=== PATIENT | male | born 1975 | race Two or more races ===

== ENCOUNTER 2023-03-12 17:04 | Emergency (ER) | payer SELFPAY ==
[~2023-03-12] VITALS: Ht 172.7 cm; Wt 90.7 kg
[2023-03-12] MEDS ORDERED: FLUORESCEIN SODIUM 1 MG STRIP ONE (17:09)
[2023-03-12] MEDS ORDERED: TETRACAINE HCL 0.5% OPHT DROP 2 ML BOTTLE ONE (17:09)
[2023-03-12] MEDS ORDERED: TETRACAINE HCL 0.5% OPHT DROP 2 ML BOTTLE OP ONE (17:15)
[2023-03-12] MEDS ORDERED: FLUORESCEIN SODIUM 1 MG STRIP OP ONE (17:15)
[2023-03-12] MEDS ORDERED: ERYT3.5O24 LEFTEYE (18:10)
[2023-03-12 18:19] VITALS: BP 126/70; O2SAT 99
== END 2023-03-12 18:44 | disposition home or self-care (01) ==
LOC: ER 17:10
DX: S05.02XA Injury of conjunctiva and corneal abrasion without foreign body, left eye, initial encounter (principal); X58.XXXA Exposure to other specified factors, initial encounter; Y93.89 Activity, other specified; Y92.89 Other specified places as the place of occurrence of the external cause; Y99.8 Other external cause status
CPT/HCPCS: A4606; A4663

== ENCOUNTER 2024-06-23 19:36 | Emergency (ER) | payer OTHER ==
[~2024-06-23] VITALS: Ht 177.8 cm; Wt 86.2 kg
[~2024-06-23 19:36] MED LIST: ERYT3.5O24 LEFTEYE
[2024-06-23 22:02] LABS: BASOPHILS % (AUTO) 0.6 % (0.0-2.0); EOSINOPHILS # (AUTO) 0.3 K/uL (0.0-0.7); EOSINOPHILS % (AUTO) 5.5 % (0.0-7.0); HEMOGLOBIN 11.1 g/dL (12.5-16.3); LYMPHOCYTES # (AUTO) 2.3 K/uL (0.8-4.8); LYMPHOCYTES % (AUTO) 40.6 % (20.5-51.5); MEAN CORPUSCULAR HEMOGLOBIN 26.2 uug (23.8-33.4); MEAN CORPUSCULAR HGB CONC 33 g/dL (32.5-36.3); MEAN CORPUSCULAR VOLUME 79.9 fL (73.0-96.2); MONOCYTES # (AUTO) 0.5 K/uL (0.1-1.30); MONOCYTES % (AUTO) 8.6 % (0.0-11.0); NEUTROPHILS # (AUTO) 2.6 K/uL (1.8-8.9); NEUTROPHILS % (AUTO) 44.7 % (38.5-71.5); PLATELET COUNT (AUTO) 262 K/uL (152-348); RED BLOOD CELL COUNT(AUTO) 4.25 MIL/uL (4.06-5.63); WHITE BLOOD COUNT (AUTO) 5.7 K/uL (3.6-10.2)
[2024-06-23 22:07] LABS: DIFFERENTIAL COMMENT 1
[2024-06-23] MEDS ORDERED: MAG HYDROX/AL HYDROX/SIMETH 30 ML LIQUID UDC ONE (22:10)
[2024-06-23] MEDS ORDERED: LIDOCAINE VISCUS 2% 15 ML UDC ONE (22:10)
[2024-06-23 22:12] LABS: CALCIUM 8.2 mg/dL (8.5-10.1); CARBON DIOXIDE 29 mmol/L (21-32); CHLORIDE 107 mmol/L (98-107); GLUCOSE 139 mg/dL (74-106); POTASSIUM 3.9 mmol/L (3.5-5.1); SODIUM SERUM 144 mmol/L (136-145); UREA NITROGEN, BLOOD 25 mg/dL (7-18)
[2024-06-23] MEDS: LIDOCAINE VISCUS 2% 15 ML UDC MM ONE (22:14)
[2024-06-23] MEDS: ONDANSETRON ODT 4 MG TAB.RAPDIS SL ONE (22:14)
[2024-06-23] MEDS: MAG HYDROX/AL HYDROX/SIMETH 30 ML LIQUID UDC PO ONE (22:14)
[2024-06-23 22:26] LABS: ALANINE AMINOTRANSFERASE 32 U/L (16-63); ALBUMIN 3.3 g/dL (3.4-5.0); ALKALINE PHOSPHATASE 55 U/L (50-136); ASPARTATE AMINOTRANSFERASE 27 U/L (15-37); BILIRUBIN,DIRECT 0.1 mg/dL (0.0-0.2); BILIRUBIN,TOTAL 0.3 mg/dL (0.2-1.0); NT-PRO BNP 32 pg/mL (0-125); TOTAL PROTEIN, SERUM 6.4 g/dL (6.4-8.2)
[2024-06-23] MEDS ORDERED: SENN1TAB33 PO (23:52)
[2024-06-23] MEDS ORDERED: FAMO-132 PO (23:52)
[2024-06-23] MEDS ORDERED: MAGNESIUM HYDROXIDE 30 ML LIQUID UDC ONE (23:59)
[2024-06-24] MEDS: MAGNESIUM HYDROXIDE 30 ML LIQUID UDC PO ONE (00:02)
[2024-06-24 00:03] VITALS: BP 84/61; O2SAT 100
== END 2024-06-24 00:04 | disposition home or self-care (01) ==
LOC: ER 19:36
DX: R07.89 Other chest pain (principal); K59.00 Constipation, unspecified; K21.9 Gastro-esophageal reflux disease without esophagitis; R61 Generalized hyperhidrosis; R94.31 Abnormal electrocardiogram [ECG] [EKG]; R06.02 Shortness of breath; Z59.00 Homelessness unspecified
CPT/HCPCS: 36415; 71045; 74018; 83690; 84484; 85025; 85730; A4606; A4663; Q0162

== ENCOUNTER 2024-07-14 00:57 | Emergency (ER) | payer OTHER ==
[~2024-07-14] VITALS: Ht 177.8 cm; Wt 83.9 kg
[~2024-07-14 00:57] MED LIST changes: +FAMO-132 PO; +SENN1TAB33 PO
[2024-07-14] MEDS ORDERED: ACETAMINOPHEN 500 MG TABLET ONE (03:32)
[2024-07-14] MEDS: ACETAMINOPHEN 500 MG TABLET PO ONE (03:35)
[2024-07-14] MEDS ORDERED: CYCL5TAB PO (04:40)
[2024-07-14 05:00] VITALS: BP 135/78; TEMP 98.2; O2SAT 100
== END 2024-07-14 05:01 | disposition home or self-care (01) ==
LOC: ER 01:35
DX: S16.1XXA Strain of muscle, fascia and tendon at neck level, initial encounter (principal); S29.011A Strain of muscle and tendon of front wall of thorax, initial encounter; S20.211A Contusion of right front wall of thorax, initial encounter; R06.02 Shortness of breath; R51.9 Headache, unspecified; R68.83 Chills (without fever); Z59.00 Homelessness unspecified; W22.03XA Walked into furniture, initial encounter; Y93.89 Activity, other specified; Y92.89 Other specified places as the place of occurrence of the external cause; Y99.8 Other external cause status
CPT/HCPCS: 71045; A4606; A4663; A9150

== ENCOUNTER 2024-07-27 22:16 | Emergency (ER) | payer OTHER ==
[~2024-07-27] VITALS: Ht 177.8 cm; Wt 83.9 kg
[~2024-07-27 22:16] MED LIST changes: +CYCL5TAB PO
[2024-07-27] MEDS: ONDANSETRON 4 MG/2 ML VIAL IV ONE (23:00)
[2024-07-27] MEDS: FAMOTIDINE. 20 MG/2 ML VIAL IV ONE (23:00)
[2024-07-27 23:02] LABS: BASOPHILS # (AUTO) 0.1 K/UL (0.0-0.2); BASOPHILS % (AUTO) 1.5 % (0.0-2.0); DIFFERENTIAL COMMENT 0; EOSINOPHILS # (AUTO) 0.4 K/uL (0.0-0.7); EOSINOPHILS % (AUTO) 8.5 % (0.0-7.0); HEMATOCRIT 30.8 % (36.7-47.1); HEMOGLOBIN 10.1 g/dL (12.5-16.3); LYMPHOCYTES # (AUTO) 1.6 K/uL (0.8-4.8); LYMPHOCYTES % (AUTO) 34.7 % (20.5-51.5); MEAN CORPUSCULAR HEMOGLOBIN 25.7 uug (23.8-33.4); MEAN CORPUSCULAR HGB CONC 33 g/dL (32.5-36.3); MEAN CORPUSCULAR VOLUME 78.7 fL (73.0-96.2); MONOCYTES # (AUTO) 0.5 K/uL (0.1-1.30); MONOCYTES % (AUTO) 10.7 % (0.0-11.0); NEUTROPHILS # (AUTO) 2.1 K/uL (1.8-8.9); NEUTROPHILS % (AUTO) 44.6 % (38.5-71.5); PLATELET COUNT (AUTO) 264 K/uL (152-348); RED BLOOD CELL COUNT(AUTO) 3.91 MIL/uL (4.06-5.63); RED CELL DISTRIBUTION WIDTH 16.6 % (12.1-16.2); WHITE BLOOD COUNT (AUTO) 4.7 K/uL (3.6-10.2)
[2024-07-27 23:12] LABS: CARBON DIOXIDE 26 mmol/L (21-32); CHLORIDE 104 mmol/L (98-107); CREATININE 1.3 mg/dL (0.6-1.3); GLUCOSE 148 mg/dL (74-106); POTASSIUM 3.4 mmol/L (3.5-5.1); SODIUM SERUM 141 mmol/L (136-145); UREA NITROGEN, BLOOD 24 mg/dL (7-18)
[2024-07-27 23:23] LABS: ALANINE AMINOTRANSFERASE 33 U/L (16-63); ALBUMIN 3.3 g/dL (3.4-5.0); ALKALINE PHOSPHATASE 63 U/L (50-136); ASPARTATE AMINOTRANSFERASE 27 U/L (15-37); BILIRUBIN,DIRECT 0.1 mg/dL (0.0-0.2); BILIRUBIN,TOTAL 0.3 mg/dL (0.2-1.0); NT-PRO BNP 36 pg/mL (0-125); TOTAL PROTEIN, SERUM 6.8 g/dL (6.4-8.2)
[2024-07-27] MEDS ORDERED: FAMOTIDINE. 20 MG/2 ML VIAL IV ONE (23:42)
[2024-07-27] MEDS ORDERED: ONDANSETRON 4 MG/2 ML VIAL ONE (23:42)
[2024-07-28] MEDS ORDERED: LIDOCAINE VISCUS 2% 15 ML UDC ONE (01:46)
[2024-07-28] MEDS ORDERED: MAG HYDROX/AL HYDROX/SIMETH 30 ML LIQUID UDC ONE (01:46)
[2024-07-28] MEDS: MAG HYDROX/AL HYDROX/SIMETH 30 ML LIQUID UDC PO ONE (01:47)
[2024-07-28] MEDS: LIDOCAINE VISCUS 2% 15 ML UDC MM ONE (01:47)
[2024-07-28 03:58] VITALS: BP 152/77; O2SAT 99
== END 2024-07-28 04:02 | disposition home or self-care (01) ==
LOC: ER 22:26
DX: K20.90 Esophagitis, unspecified without bleeding (principal); R11.0 Nausea; R03.0 Elevated blood-pressure reading, without diagnosis of hypertension; M54.2 Cervicalgia; R06.02 Shortness of breath; R07.9 Chest pain, unspecified; R10.10 Upper abdominal pain, unspecified; R25.2 Cramp and spasm; R94.31 Abnormal electrocardiogram [ECG] [EKG]; F10.10 Alcohol abuse, uncomplicated; Z59.00 Homelessness unspecified; Y90.9 Presence of alcohol in blood, level not specified
CPT/HCPCS: 99285; 96374; 71045; 96375; 80076; 80048; 83880; 83690; 83735; 85025; 85730; 84484 ×2; 36415 ×2; 93005; J3490; J2405; A4606; A4663

== ENCOUNTER 2024-07-31 18:38 | Emergency (ER) | payer OTHER ==
[~2024-07-31] VITALS: Ht 177.8 cm; Wt 83.9 kg
[2024-08-01] MEDS ORDERED: BACI28.33 TP (00:01)
[2024-08-01] MEDS ORDERED: NEOMY/BACITRA/POLYMYXIN B OINT UD PACKET TP ONE (00:05)
[2024-08-01 00:06] LABS: HEMATOCRIT 32.4 % (36.7-47.1); HEMOGLOBIN 10.5 g/dL (12.5-16.3); MEAN CORPUSCULAR HEMOGLOBIN 25.7 uug (23.8-33.4); MEAN CORPUSCULAR HGB CONC 33 g/dL (32.5-36.3); MEAN CORPUSCULAR VOLUME 78.7 fL (73.0-96.2); NEUTROPHILS % (AUTO) 48.6 % (38.5-71.5); PLATELET COUNT (AUTO) 242 K/uL (152-348); RED BLOOD CELL COUNT(AUTO) 4.11 MIL/uL (4.06-5.63); RED CELL DISTRIBUTION WIDTH 16.8 % (12.1-16.2); WHITE BLOOD COUNT (AUTO) 4.7 K/uL (3.6-10.2)
[2024-08-01 00:07] LABS: BASOPHILS % (AUTO) 0.9 % (0.0-2.0); EOSINOPHILS # (AUTO) 0.4 K/uL (0.0-0.7); EOSINOPHILS % (AUTO) 7.6 % (0.0-7.0); LYMPHOCYTES # (AUTO) 1.7 K/uL (0.8-4.8); MONOCYTES # (AUTO) 0.4 K/uL (0.1-1.30); MONOCYTES % (AUTO) 7.9 % (0.0-11.0); NEUTROPHILS # (AUTO) 2.3 K/uL (1.8-8.9)
[2024-08-01 00:09] LABS: DIFFERENTIAL COMMENT 1
[2024-08-01] MEDS: NEOMY/BACITRA/POLYMYXIN B OINT UD PACKET TP ONE (00:14)
[2024-08-01 00:16] LABS: *BILIRUBIN,URIN NEGATIVE (NEGATIVE); *BLOOD, URINE NEGATIVE (NEGATIVE); *CLARITY,URINE CLEAR (CLEAR); *COLOR,URINE YELLOW (YELLOW); *KETONES,URINE NEGATIVE (NEGATIVE); *PROTEIN,URINE NEGATIVE (NEGATIVE); *UROBILINOGEN,URINE 0.2 E.U./dl (NORMAL); LEUKOCYTE ESTERASE ,URINE NEGATIVE (NEGATIVE); NITRITE, URINE NEGATIVE (NEGATIVE); PH,URINE 5.5 (5.0-8.0); UGLUCOSE NEGATIVE (NEGATIVE)
[2024-08-01 00:19] LABS: CALCIUM 8.7 mg/dL (8.5-10.1); CARBON DIOXIDE 30 mmol/L (21-32); CHLORIDE 106 mmol/L (98-107); CREATININE 0.8 mg/dL (0.6-1.3); GLUCOSE 120 mg/dL (74-106); SODIUM SERUM 143 mmol/L (136-145); UREA NITROGEN, BLOOD 21 mg/dL (7-18)
[2024-08-01 00:24] LABS: *AMPHETAMINE, URINE NEGATIVE (NEGATIVE); *BARBITURATE, URINE NEGATIVE (NEGATIVE); *BENZODIAZEPINE, URINE NEGATIVE (NEGATIVE); *CANNABINOID, URINE NEGATIVE (NEGATIVE); *COCCAINE, URINE NEGATIVE (NEGATIVE); *OPIATE, URINE NEGATIVE (NEGATIVE); *PHENCYCLIDINE SCREEN,URINE NEGATIVE (NEGATIVE); FENTANYL, URINE NEGATIVE (NEGATIVE)
[2024-08-01 00:27] LABS: ALANINE AMINOTRANSFERASE 25 U/L (16-63); ALBUMIN 3.1 g/dL (3.4-5.0); ALKALINE PHOSPHATASE 48 U/L (50-136); ASPARTATE AMINOTRANSFERASE 19 U/L (15-37); BILIRUBIN,DIRECT 0.1 mg/dL (0.0-0.2); BILIRUBIN,TOTAL 0.2 mg/dL (0.2-1.0); TOTAL PROTEIN, SERUM 6.5 g/dL (6.4-8.2)
[2024-08-01 00:42] LABS: LIPASE 42 U/L (16-77)
[2024-08-01] MEDS ORDERED: SUCR1ORA4 PO (01:03)
[2024-08-01 01:14] LABS: ETHANOL < 3 MG/DL (0-10)
[2024-08-01 01:24] VITALS: BP 145/90; O2SAT 99
== END 2024-08-01 01:32 | disposition home or self-care (01) ==
LOC: ER 18:38
DX: R07.89 Other chest pain (principal); R23.4 Changes in skin texture; R10.9 Unspecified abdominal pain; Z59.00 Homelessness unspecified
CPT/HCPCS: 36415; 71045; 83690; 84484; 85025; A4606; A4663; G0480

== ENCOUNTER 2024-08-16 09:15 | Emergency (ER) | payer OTHER ==
[~2024-08-16] VITALS: Ht 170.2 cm; Wt 72.6 kg
[~2024-08-16 09:15] MED LIST changes: +BACI28.33 TP; +SUCR1ORA4 PO
[2024-08-16 09:35] LABS: BASOPHILS % (AUTO) 0.9 % (0.0-2.0); EOSINOPHILS # (AUTO) 0.3 K/uL (0.0-0.7); EOSINOPHILS % (AUTO) 6.4 % (0.0-7.0); HEMATOCRIT 33.1 % (36.7-47.1); HEMOGLOBIN 10.8 g/dL (12.5-16.3); LYMPHOCYTES # (AUTO) 1.5 K/uL (0.8-4.8); MEAN CORPUSCULAR HEMOGLOBIN 25.9 uug (23.8-33.4); MEAN CORPUSCULAR HGB CONC 33 g/dL (32.5-36.3); MEAN CORPUSCULAR VOLUME 79.6 fL (73.0-96.2); MONOCYTES # (AUTO) 0.5 K/uL (0.1-1.30); MONOCYTES % (AUTO) 11.3 % (0.0-11.0); NEUTROPHILS % (AUTO) 46.4 % (38.5-71.5); PLATELET COUNT (AUTO) 245 K/uL (152-348); RED BLOOD CELL COUNT(AUTO) 4.15 MIL/uL (4.06-5.63); RED CELL DISTRIBUTION WIDTH 17.7 % (12.1-16.2); WHITE BLOOD COUNT (AUTO) 4.2 K/uL (3.6-10.2)
[2024-08-16 09:40] LABS: DIFFERENTIAL COMMENT 1
[2024-08-16 09:46] LABS: CALCIUM 8.7 mg/dL (8.5-10.1); CARBON DIOXIDE 33 mmol/L (21-32); CHLORIDE 106 mmol/L (98-107); GLUCOSE 98 mg/dL (74-106); POTASSIUM 4.7 mmol/L (3.5-5.1); SODIUM SERUM 141 mmol/L (136-145); UREA NITROGEN, BLOOD 17 mg/dL (7-18)
[2024-08-16 09:58] LABS: ALANINE AMINOTRANSFERASE 50 U/L (16-63); ALBUMIN 3.1 g/dL (3.4-5.0); ALKALINE PHOSPHATASE 45 U/L (50-136); ASPARTATE AMINOTRANSFERASE 28 U/L (15-37); BILIRUBIN,DIRECT 0.1 mg/dL (0.0-0.2); BILIRUBIN,TOTAL 0.2 mg/dL (0.2-1.0); NT-PRO BNP 62 pg/mL (0-125); TOTAL PROTEIN, SERUM 6.2 g/dL (6.4-8.2)
[2024-08-16 11:54] VITALS: BP 140/80; O2SAT 99
== END 2024-08-16 12:07 | disposition home or self-care (01) ==
LOC: ER 09:37
DX: R07.89 Other chest pain (principal); R10.13 Epigastric pain; R11.2 Nausea with vomiting, unspecified; Z59.00 Homelessness unspecified
CPT/HCPCS: 36415; 71045; 83690; 84484; 85025; 85730; A4606; A4663

== ENCOUNTER 2024-08-20 23:34 | Emergency (ER) | payer OTHER ==
[~2024-08-20] VITALS: Ht 175.3 cm; Wt 77.1 kg
[2024-08-21 01:04] LABS: BASOPHILS % (AUTO) 0.8 % (0.0-2.0); EOSINOPHILS # (AUTO) 0.3 K/uL (0.0-0.7); EOSINOPHILS % (AUTO) 5.8 % (0.0-7.0); HEMATOCRIT 30.6 % (36.7-47.1); HEMOGLOBIN 10.1 g/dL (12.5-16.3); LYMPHOCYTES # (AUTO) 2.2 K/uL (0.8-4.8); LYMPHOCYTES % (AUTO) 39.6 % (20.5-51.5); MEAN CORPUSCULAR HEMOGLOBIN 25.7 uug (23.8-33.4); MEAN CORPUSCULAR HGB CONC 33 g/dL (32.5-36.3); MEAN CORPUSCULAR VOLUME 77.7 fL (73.0-96.2); MONOCYTES # (AUTO) 0.5 K/uL (0.1-1.30); MONOCYTES % (AUTO) 8.7 % (0.0-11.0); NEUTROPHILS # (AUTO) 2.5 K/uL (1.8-8.9); NEUTROPHILS % (AUTO) 45.1 % (38.5-71.5); PLATELET COUNT (AUTO) 282 K/uL (152-348); RED BLOOD CELL COUNT(AUTO) 3.94 MIL/uL (4.06-5.63); RED CELL DISTRIBUTION WIDTH 18.1 % (12.1-16.2); WHITE BLOOD COUNT (AUTO) 5.5 K/uL (3.6-10.2)
[2024-08-21 01:10] LABS: DIFFERENTIAL COMMENT 1
[2024-08-21 01:14] LABS: CALCIUM 8.8 mg/dL (8.5-10.1); CARBON DIOXIDE 26 mmol/L (21-32); CHLORIDE 104 mmol/L (98-107); GLUCOSE 97 mg/dL (74-106); POTASSIUM 3.7 mmol/L (3.5-5.1); SODIUM SERUM 141 mmol/L (136-145); UREA NITROGEN, BLOOD 21 mg/dL (7-18)
[2024-08-21] MEDS ORDERED: predniSONE 50 MG TABLET ONE (01:19)
[2024-08-21 01:20] LABS: ALANINE AMINOTRANSFERASE 46 U/L (16-63); ALBUMIN 3.4 g/dL (3.4-5.0); ALKALINE PHOSPHATASE 57 U/L (50-136); ASPARTATE AMINOTRANSFERASE 39 U/L (15-37); BILIRUBIN,DIRECT 0.2 mg/dL (0.0-0.2); BILIRUBIN,TOTAL 0.5 mg/dL (0.2-1.0); TOTAL PROTEIN, SERUM 6.6 g/dL (6.4-8.2)
[2024-08-21] MEDS ORDERED: diphenhydrAMINE 50 MG CAPSULE ONE (01:20)
[2024-08-21] MEDS ORDERED: MAG HYDROX/AL HYDROX/SIMETH 30 ML LIQUID UDC ONE (01:20)
[2024-08-21] MEDS ORDERED: LIDOCAINE VISCUS 2% 15 ML UDC ONE (01:20)
[2024-08-21] MEDS ORDERED: predniSONE 20 MG TABLET ONE (01:21)
[2024-08-21] MEDS: MAG HYDROX/AL HYDROX/SIMETH 30 ML LIQUID UDC PO ONE (01:24)
[2024-08-21] MEDS: predniSONE 20 MG TABLET PO ONE (01:24)
[2024-08-21] MEDS: diphenhydrAMINE 50 MG CAPSULE PO ONE (01:24)
[2024-08-21] MEDS: LIDOCAINE VISCUS 2% 15 ML UDC MM ONE (01:24)
[2024-08-21 01:33] LABS: LIPASE < 6 U/L (16-77)
[2024-08-21] MEDS ORDERED: CEPH500C2 PO (02:45)
[2024-08-21] MEDS ORDERED: TRIA15CR2 TP (02:45)
[2024-08-21 03:37] VITALS: BP 130/78; O2SAT 99
== END 2024-08-21 03:38 | disposition home or self-care (01) ==
LOC: ER 23:37
DX: R07.89 Other chest pain (principal); L23.9 Allergic contact dermatitis, unspecified cause; R03.0 Elevated blood-pressure reading, without diagnosis of hypertension; R06.02 Shortness of breath; R10.9 Unspecified abdominal pain; L03.114 Cellulitis of left upper limb; L03.113 Cellulitis of right upper limb; L03.311 Cellulitis of abdominal wall; Z59.00 Homelessness unspecified
CPT/HCPCS: 99285; 71045; 80076; 80048; 83690; 85025; 84484; 36415; 93005; Q0163; J7512; A4606; A4663

== ENCOUNTER 2024-08-26 19:33 | Emergency (ER) | payer OTHER ==
[~2024-08-26] VITALS: Ht 177.8 cm; Wt 81.6 kg
[~2024-08-26 19:33] MED LIST changes: +CEPH500C2 PO; +TRIA15CR2 TP
[2024-08-26] MEDS ORDERED: KETOROLAC TROMETHAMINE 30 MG INJ ONE (20:18)
[2024-08-26] MEDS: KETOROLAC TROMETHAMINE 30 MG INJ IVP ONE (20:23)
[2024-08-26 20:32] LABS: BASOPHILS % (AUTO) 0.9 % (0.0-2.0); EOSINOPHILS # (AUTO) 0.1 K/uL (0.0-0.7); EOSINOPHILS % (AUTO) 2.7 % (0.0-7.0); HEMATOCRIT 34.2 % (36.7-47.1); LYMPHOCYTES # (AUTO) 1.1 K/uL (0.8-4.8); LYMPHOCYTES % (AUTO) 26.6 % (20.5-51.5); MEAN CORPUSCULAR HEMOGLOBIN 25.1 uug (23.8-33.4); MEAN CORPUSCULAR HGB CONC 32 g/dL (32.5-36.3); MEAN CORPUSCULAR VOLUME 78.1 fL (73.0-96.2); MONOCYTES # (AUTO) 0.5 K/uL (0.1-1.30); MONOCYTES % (AUTO) 12.7 % (0.0-11.0); NEUTROPHILS # (AUTO) 2.3 K/uL (1.8-8.9); NEUTROPHILS % (AUTO) 57.1 % (38.5-71.5); PLATELET COUNT (AUTO) 311 K/uL (152-348); RED BLOOD CELL COUNT(AUTO) 4.38 MIL/uL (4.06-5.63); RED CELL DISTRIBUTION WIDTH 18.7 % (12.1-16.2)
[2024-08-26 20:34] LABS: DIFFERENTIAL COMMENT 1
[2024-08-26 20:41] LABS: *BILIRUBIN,URIN NEGATIVE (NEGATIVE); *BLOOD, URINE NEGATIVE (NEGATIVE); *CLARITY,URINE CLEAR (CLEAR); *COLOR,URINE YELLOW (YELLOW); *KETONES,URINE TRACE (NEGATIVE); *PROTEIN,URINE 1+ (NEGATIVE); *UROBILINOGEN,URINE 0.2 E.U./dl (NORMAL); LEUKOCYTE ESTERASE ,URINE NEGATIVE (NEGATIVE); NITRITE, URINE NEGATIVE (NEGATIVE); PH,URINE 5.5 (5.0-8.0); UGLUCOSE NEGATIVE (NEGATIVE)
[2024-08-26 20:45] LABS: ALBUMIN 4.1 g/dL (3.4-5.0); BILIRUBIN,TOTAL 0.6 mg/dL (0.2-1.0); POTASSIUM 3.9 mmol/L (3.5-5.1); TOTAL PROTEIN, SERUM 7.5 g/dL (6.4-8.2)
[2024-08-26 21:01] LABS: BACTERIA,URINE FEW /HPF (NONE SEEN); WBC,URINE 0-3 /HPF (0-3)
[2024-08-26 21:02] LABS: URIC ACID CRYSTALS,URINE MODERATE /HPF (NONE SEEN)
[2024-08-26 21:44] LABS: *AMPHETAMINE, URINE POSITIVE (NEGATIVE); *BARBITURATE, URINE NEGATIVE (NEGATIVE); *BENZODIAZEPINE, URINE NEGATIVE (NEGATIVE); *CANNABINOID, URINE NEGATIVE (NEGATIVE); *COCCAINE, URINE NEGATIVE (NEGATIVE); *OPIATE, URINE NEGATIVE (NEGATIVE); *PHENCYCLIDINE SCREEN,URINE NEGATIVE (NEGATIVE); FENTANYL, URINE NEGATIVE (NEGATIVE)
[2024-08-26 21:47] VITALS: O2SAT 96
== END 2024-08-26 22:41 | disposition left against medical advice (07) ==
LOC: ER 19:36
DX: K59.00 Constipation, unspecified (principal); Z59.00 Homelessness unspecified
CPT/HCPCS: 80053; 81001; 83690; 85025; 87040; 36415; 74176; 99285; 96374; 80320; 80307; J1885; A4606; A4663; G0480

== ENCOUNTER 2024-09-08 20:06 | Emergency (ER) | payer OTHER ==
[~2024-09-08] VITALS: Ht 172.7 cm; Wt 83.9 kg
[2024-09-08 20:57] LABS: BASOPHILS % (AUTO) 0.8 % (0.0-2.0); EOSINOPHILS # (AUTO) 0.2 K/uL (0.0-0.7); EOSINOPHILS % (AUTO) 3.4 % (0.0-7.0); HEMATOCRIT 30.5 % (36.7-47.1); HEMOGLOBIN 9.8 g/dL (12.5-16.3); LYMPHOCYTES # (AUTO) 2.2 K/uL (0.8-4.8); LYMPHOCYTES % (AUTO) 45.4 % (20.5-51.5); MEAN CORPUSCULAR HEMOGLOBIN 25.3 uug (23.8-33.4); MEAN CORPUSCULAR HGB CONC 32 g/dL (32.5-36.3); MONOCYTES # (AUTO) 0.5 K/uL (0.1-1.30); NEUTROPHILS % (AUTO) 40.4 % (38.5-71.5); PLATELET COUNT (AUTO) 269 K/uL (152-348); RED BLOOD CELL COUNT(AUTO) 3.86 MIL/uL (4.06-5.63); RED CELL DISTRIBUTION WIDTH 18.7 % (12.1-16.2); WHITE BLOOD COUNT (AUTO) 4.9 K/uL (3.6-10.2)
[2024-09-08 21:00] LABS: DIFFERENTIAL COMMENT 1
[2024-09-08] MEDS: IV NORMAL SALINE 1000 ML BAG IV ONE (21:06)
[2024-09-08 21:12] LABS: ALBUMIN 3.3 g/dL (3.4-5.0); BILIRUBIN,DIRECT 0.1 mg/dL (0.0-0.2); BILIRUBIN,TOTAL 0.3 mg/dL (0.2-1.0); CALCIUM 8.9 mg/dL (8.5-10.1); CREATININE 1.1 mg/dL (0.6-1.3); POTASSIUM 3.9 mmol/L (3.5-5.1); TOTAL PROTEIN, SERUM 6.6 g/dL (6.4-8.2)
[2024-09-08] MEDS ORDERED: METO5TAB87 PO (21:45)
[2024-09-08] MEDS ORDERED: KETOROLAC TROMETHAMINE 30 MG INJ ONE (22:34)
[2024-09-08] MEDS: KETOROLAC TROMETHAMINE 30 MG INJ IM ONE (22:39)
[2024-09-08 22:55] VITALS: BP 121/65; TEMP 98; O2SAT 98
== END 2024-09-08 22:56 | disposition home or self-care (01) ==
LOC: ER 20:23
DX: R11.2 Nausea with vomiting, unspecified (principal); Z59.00 Homelessness unspecified; Z95.0 Presence of cardiac pacemaker
CPT/HCPCS: 99284; 96360; 80076; 80048; 85025; 36415; 93005; 83605; 96372; J1885; J7040 ×2; A4606; A4663

== ENCOUNTER 2024-09-21 07:29 | Emergency (ER) | payer OTHER ==
[~2024-09-21] VITALS: Ht 177.8 cm; Wt 83.9 kg
[~2024-09-21 07:29] MED LIST changes: +METO5TAB87 PO
[2024-09-21] MEDS ORDERED: ONDANSETRON 4 MG/2 ML VIAL ONE (08:33)
[2024-09-21 08:38] LABS: BASOPHILS % (AUTO) 0.7 % (0.0-2.0); EOSINOPHILS # (AUTO) 0.3 K/uL (0.0-0.7); EOSINOPHILS % (AUTO) 5.3 % (0.0-7.0); HEMATOCRIT 30.4 % (36.7-47.1); HEMOGLOBIN 9.9 g/dL (12.5-16.3); LYMPHOCYTES # (AUTO) 1.1 K/uL (0.8-4.8); LYMPHOCYTES % (AUTO) 22.2 % (20.5-51.5); MEAN CORPUSCULAR HEMOGLOBIN 25.3 uug (23.8-33.4); MEAN CORPUSCULAR HGB CONC 33 g/dL (32.5-36.3); MEAN CORPUSCULAR VOLUME 77.5 fL (73.0-96.2); MONOCYTES # (AUTO) 0.5 K/uL (0.1-1.30); MONOCYTES % (AUTO) 11.2 % (0.0-11.0); NEUTROPHILS # (AUTO) 2.9 K/uL (1.8-8.9); NEUTROPHILS % (AUTO) 60.6 % (38.5-71.5); PLATELET COUNT (AUTO) 262 K/uL (152-348); RED BLOOD CELL COUNT(AUTO) 3.92 MIL/uL (4.06-5.63); RED CELL DISTRIBUTION WIDTH 18.7 % (12.1-16.2); WHITE BLOOD COUNT (AUTO) 4.8 K/uL (3.6-10.2)
[2024-09-21] MEDS: ONDANSETRON 4 MG/2 ML VIAL IV ONE (08:38)
[2024-09-21] MEDS: IV NORMAL SALINE 500 ML BAG IV ONE (08:54)
[2024-09-21 08:58] LABS: DIFFERENTIAL COMMENT 1
[2024-09-21 09:11] LABS: ALANINE AMINOTRANSFERASE 43 U/L (16-63); ALBUMIN 3.2 g/dL (3.4-5.0); ALKALINE PHOSPHATASE 64 U/L (50-136); ASPARTATE AMINOTRANSFERASE 50 U/L (15-37); BILIRUBIN,DIRECT < 0.1 mg/dL (0.0-0.2); BILIRUBIN,TOTAL 0.3 mg/dL (0.2-1.0); CALCIUM 8.9 mg/dL (8.5-10.1); CARBON DIOXIDE 29 mmol/L (21-32); CHLORIDE 108 mmol/L (98-107); CREATININE 0.9 mg/dL (0.6-1.3); GLUCOSE 127 mg/dL (74-106); LIPASE 45 U/L (16-77); POTASSIUM 3.8 mmol/L (3.5-5.1); SODIUM SERUM 145 mmol/L (136-145); TOTAL PROTEIN, SERUM 6.6 g/dL (6.4-8.2); UREA NITROGEN, BLOOD 22 mg/dL (7-18)
[2024-09-21] MEDS ORDERED: IOHEXOL 300MG/ML 100 ML INFUS..BTL ONE (09:45)
[2024-09-21] MEDS ORDERED: IV NORMAL SALINE 250 ML IV ONE (09:45)
[2024-09-21] MEDS ORDERED: SWABABLE VALVE TRANSFER SET EA MC ONE (09:45)
[2024-09-21 10:33] LABS: IRON, SERUM 20 ug/dL (50-175)
[2024-09-21 10:48] LABS: *BILIRUBIN,URIN NEGATIVE (NEGATIVE); *BLOOD, URINE NEGATIVE (NEGATIVE); *CLARITY,URINE CLEAR (CLEAR); *COLOR,URINE YELLOW (YELLOW); *KETONES,URINE NEGATIVE (NEGATIVE); *PROTEIN,URINE NEGATIVE (NEGATIVE); *UROBILINOGEN,URINE 0.2 E.U./dl (NORMAL); LEUKOCYTE ESTERASE ,URINE NEGATIVE (NEGATIVE); NITRITE, URINE NEGATIVE (NEGATIVE); UGLUCOSE NEGATIVE (NEGATIVE)
[2024-09-21] MEDS ORDERED: FERR325T23 PO (11:50)
[2024-09-21] MEDS ORDERED: TRIA60LO16 TP (11:50)
[2024-09-21 13:08] VITALS: BP 139/81; O2SAT 97
== END 2024-09-21 13:09 | disposition home or self-care (01) ==
LOC: ER 07:29
DX: R10.13 Epigastric pain (principal); R03.0 Elevated blood-pressure reading, without diagnosis of hypertension; R11.0 Nausea; R21 Rash and other nonspecific skin eruption; D50.9 Iron deficiency anemia, unspecified; Z59.00 Homelessness unspecified
CPT/HCPCS: 99285; 74177; 96374; 71045; 96361; 80076; 80048; 81003; 83550; 83690; 85025; 85044; 36415; 98960; J2405; Q9967; J7040 ×2; 70030-TC; A4606; A4663

== ENCOUNTER 2024-09-29 20:53 | Emergency (ER) | payer OTHER ==
[~2024-09-29] VITALS: Ht 177.8 cm; Wt 83.9 kg
[~2024-09-29 20:53] MED LIST changes: +FERR325T23 PO; +TRIA60LO16 TP
[2024-09-29 20:58] VITALS: O2SAT 98
== END 2024-09-29 22:00 | disposition left against medical advice (07) ==
LOC: ER 20:57
DX: J34.89 Other specified disorders of nose and nasal sinuses (principal); Z59.00 Homelessness unspecified
CPT/HCPCS: A4606; A4663

== ENCOUNTER → 2024-11-25 | Emergency (ER) | payer OTHER ==
[~2024-11-25] VITALS: Ht 177.8 cm; Wt 90.7 kg
[~2024-11-25] MED LIST changes: +PRED20TA PO; +TRIA60LO14 TP; +diphenhydrAMINE 50 MG/1 ML VIAL ONE
[2024-11-25 02:29] LABS: PLATELET COUNT (AUTO) 207 K/uL (152-348); RED BLOOD CELL COUNT(AUTO) 4.59 MIL/uL (4.06-5.63); RED CELL DISTRIBUTION WIDTH 18.9 % (12.1-16.2); WHITE BLOOD COUNT (AUTO) 5.8 K/uL (3.6-10.2)
[2024-11-25 02:50] LABS: CREATININE 1.0 mg/dL (0.6-1.3); SODIUM SERUM 145.0 mmol/L (136-145); UREA NITROGEN, BLOOD 12.0 mg/dL (7-18)
[2024-11-25 02:54] LABS: ETHANOL < 3 MG/DL (0-10)
[2024-11-25 02:56] LABS: ASPARTATE AMINOTRANSFERASE 61.0 U/L (15-37); TOTAL PROTEIN, SERUM 6.5 g/dL (6.4-8.2)
[2024-11-25] MEDS: diphenhydrAMINE 50 MG/1 ML VIAL IM ONE (03:14)
[2024-11-25 06:00] VITALS: BP 127/86; O2SAT 99
== END | disposition home or self-care (01) ==
LOC: ER 02:15
DX: L23.9 Allergic contact dermatitis, unspecified cause (principal); Z59.00 Homelessness unspecified; Z79.52 Long term (current) use of systemic steroids; Z79.899 Other long term (current) drug therapy
CPT/HCPCS: 36415; 85025; A4606; A4663; G0480; J1200; J2919

== ENCOUNTER 2025-01-26 22:15 | Emergency (ER) | payer OTHER ==
[~2025-01-26] VITALS: Ht 177.8 cm; Wt 90.7 kg
[2025-01-26 22:15] VITALS: BP 160/71
[~2025-01-26 22:15] MED LIST changes: -diphenhydrAMINE 50 MG/1 ML VIAL ONE
[2025-01-27 04:02] LABS: *BILIRUBIN,URIN NEGATIVE (NEGATIVE); *BLOOD, URINE NEGATIVE (NEGATIVE); *CLARITY,URINE CLEAR (CLEAR); *COLOR,URINE YELLOW (YELLOW); *KETONES,URINE NEGATIVE (NEGATIVE); *PROTEIN,URINE NEGATIVE (NEGATIVE); *UROBILINOGEN,URINE 0.2 E.U./dl (NORMAL); LEUKOCYTE ESTERASE ,URINE NEGATIVE (NEGATIVE); NITRITE, URINE NEGATIVE (NEGATIVE); UGLUCOSE NEGATIVE (NEGATIVE)
[2025-01-27 04:16] LABS: *AMPHETAMINE, URINE POSITIVE (NEGATIVE); *BARBITURATE, URINE NEGATIVE (NEGATIVE); *BENZODIAZEPINE, URINE NEGATIVE (NEGATIVE); *CANNABINOID, URINE NEGATIVE (NEGATIVE); *COCCAINE, URINE NEGATIVE (NEGATIVE); *OPIATE, URINE NEGATIVE (NEGATIVE); *PHENCYCLIDINE SCREEN,URINE NEGATIVE (NEGATIVE); FENTANYL, URINE NEGATIVE (NEGATIVE)
[2025-01-27 06:17] VITALS: BP 148/74; O2SAT 98
== END 2025-01-27 06:18 | disposition home or self-care (01) ==
LOC: ER 22:18
DX: M79.671 Pain in right foot (principal); M79.672 Pain in left foot; Z59.00 Homelessness unspecified; Z79.52 Long term (current) use of systemic steroids
CPT/HCPCS: 73630; A4606; A4663